=== PATIENT | male | born 1975 | race Caucasian/White ===

== ENCOUNTER 2021-01-14 10:01 | Emergency (ER) | payer OTHER, SELFPAY ==
[2021-01-14 10:22] VITALS: BP 135/83; PULSE 93; RESP 18; TEMP 36.5; O2SAT 97
--- NOTE | 2021-01-14 11:10 | ED.URI ---
HPI - URI/Sore Throat General Chief Complaint: Upper Respiratory Infection Stated Complaint: Sore Throat,Runny Nose,Cough Source: patient and RN notes reviewed History of Present Illness HPI Narrative: The vaccinated patient, a diabetic store protection specialist, presents with sore throat. Patient states he has been around people with Covid; he now has a shorter couple day history of scratchy throat,myalgias with headache, postnasal drip and dry cough. No fever measured, loss of taste/smell, S OB, earache, CP; symptoms are mild slightly worse upon awakening the morning. Related Data Home Medications Medication Instructions Recorded Confirmed glimepiride 4 mg PO DAILY 03/18/19 03/18/19 hydrocodone-acetaminophen [Kopperl] 1 tablet PO TID PRN 03/18/19 03/18/19 lisinopril 40 mg PO DAILY 03/18/19 03/18/19 metformin 500 mg PO DAILY 03/18/19 03/18/19 morphine 15 mg PO DAILY 03/18/19 03/18/19 sildenafil 100 mg PO DAILY 03/18/19 03/18/19 tizanidine [Zanaflex] 4 mg PO TID PRN 03/18/19 03/18/19 Allergies Allergy/AdvReac Type Severity Reaction Status Date / Time No Known Allergies Allergy Verified 01/14/21 10:20 Review of Systems Review of Systems: General/Constitutional: No weight loss,fever Eyes: N0: Redness,discharge Ears/Nose/Throat: No: Epistaxis,ear discharge Respiratory: Denies: Hemoptysis Gastrointestinal: No Vomiting, Bleeding-rectal Skin: No Lumps, eruption Neurologic: No Focal Weakness,Sz Hematologic: Denies: Petechiae/Purpura Psychiatric: No: Suicida ideationl All Other Systems: Reviewed and Negative PMFSH Comments At time of signature, agree with nursing past medical, surgical, social and family history. There is no relevant family history pertinent to the presenting complaint Exam Narrative: General Appearance: Well appearing, Well nourished EYE: PERRLA, Conjunctiva clear Ears: Auditory canal normal, TM normal Nose: Rhinorrhea, Mucousal erythema Mouth/Throat: MM moist, Uvula midline, Pharyngeal erythema Neck: Supple, No adenopathy Respiratory: No respiratory distress, Breath sounds equal, Clear to auscultation Cardiovascular: RRR, No JVD Musculoskeletal: Non tender, Normal strength Skin: Warm, Dry Neurological: A&O x3, CN II-XII intact Psychiatric: Normal mood, Normal affect Course Vital Signs Vital signs: Vital Signs Temperature 97.7 F 01/14/21 10:22 Pulse Rate 93 01/14/21 10:22 Respiratory Rate 18 01/14/21 10:22 Blood Pressure 135/83 01/14/21 10:22 Pulse Oximetry 97 01/14/21 10:22 Temperature 97.7 F 01/14/21 10:22 Pulse Rate 93 01/14/21 10:22 Respiratory Rate 18 01/14/21 10:22 Blood Pressure 135/83 01/14/21 10:22 Pulse Oximetry 97 01/14/21 10:22 Discharge Plan Discharge Clinical Impression: Influenza-like illness Patient Disposition: Home, Self-Care Condition: Stable Instructions: Acute Bronchitis (ED) Prescriptions: New azithromycin 250 mg tablet See Rx Instructions .ROUTE .COMPLEX Qty: 6 RF: 0 benzonatate [Tessalon Perles] 100 mg capsule 100 mg PO TID Qty: 20 RF: 1 lidocaine HCl [Lidocaine Viscous] 2 % solution 5 ml MUCOUS MEM QID PRN (Reason: pain) Qty: 100 RF: 0 azelastine 137 mcg (0.1 %) aerosol,spray 137 mcg NASAL Q12H Qty: 30 RF: 0 No Action tizanidine [Zanaflex] 4 mg Tablet 4 mg PO TID PRN (Reason: Back Pain) RF: 0 hydrocodone-acetaminophen [Kopperl] 10-325 mg Tablet 1 tablet PO TID PRN (Reason: Back Pain) RF: 0 sildenafil 100 mg Tablet 100 mg PO DAILY RF: 0 glimepiride 4 mg Tablet 4 mg PO DAILY RF: 0 morphine 15 mg Tablet Extended Release 15 mg PO DAILY RF: 0 lisinopril 40 mg Tablet 40 mg PO DAILY RF: 0 metformin 500 mg Tablet Extended Release 24 Hr 500 mg PO DAILY RF: 0 penicillin V potassium 500 mg tablet 500 mg PO Q8H 10 Days Qty: 30 RF: 0 ibuprofen 800 mg tablet 800 mg PO TID PRN (Reason: pain) Qty: 30 RF: 0 Other Ambulatory Orders:
== END 2021-01-14 11:23 | disposition home or self-care (01) ==
PROVIDERS: Emergency Provider Emergency Medicine; PCP Emergency Medicine
DX: J11.1 Influenza due to unidentified influenza virus with other respiratory manifestations (principal); Z20.822 Contact with and (suspected) exposure to COVID-19
CPT/HCPCS: 87426; 99213; C9803; G0463